=== PATIENT | female | born 1970 | race Caucasian/White ===

== ENCOUNTER 2021-01-09 12:24 | Emergency (ER) | payer BC ==
[2021-01-09] MEDS ORDERED: Penicillin V Potassium 250 MG TAB ONE (12:56)
[2021-01-09] MEDS ORDERED: Acetaminophen/Codeine 30-300mg Tablet ONE (12:57)
== END 2021-01-09 13:05 | disposition home or self-care (01) ==
LOC: BURERS 12:24
DX: K08.89 Other specified disorders of teeth and supporting structures (principal); I10 Essential (primary) hypertension; E11.9 Type 2 diabetes mellitus without complications
CPT/HCPCS: 99282